=== PATIENT | female | born 1980 | race Caucasian/White ===

== ENCOUNTER 2017-04-03 12:08 | Emergency (ER) | payer OTHER ==
[2017-04-03 14:17] VITALS: BP 141/82
[2017-04-03] MEDS ORDERED: Albuterol/Ipratropium NEB.SOL* Albuterol 2.5 MG/Ipratropium 0.5 MG 3 ML INH ONE (14:24)
--- NOTE | 2017-04-03 14:40 | RAD ---
Indication: Cough, wheezing. 2 views of the chest including dual energy PA views demonstrate no mediastinal shift. Heart is of normal size and configuration. Lung niño demonstrate no pleural fluid, pneumonia or pneumothorax. IMPRESSION: No active cardiopulmonary disease is noted.
--- NOTE | 2017-04-03 15:40 | UC ---
Respiratory Complaint HPI - HPI Summary HPI Summary: TEN DAYS OF WORSENING COUGH AND SINUS CONGESTION, DEVELOPED FEVER TWO DAYS AGO. HAD BEEN TREATED WITH TAMIFLU WITH NO EFFECT TWO WEEKS AGO. 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 Negative: Calf Pain, Calf Swelling - Risk Factors Pulmonary Embolism Risk Factors: Negative Cardiac Risk Factors: Negative Pseudomonas Risk Factors: Negative Tuberculosis Risk Factors: Negative - Allergies/Home Medications Allergies/Adverse Reactions: Allergies Allergy/AdvReac Type Severity Reaction Status Date / Time Amoxicillin [From Augmentin] Allergy Hives Verified 04/03/17 14:08 Azithromycin [From Zithromax] Allergy Hives Verified 04/03/17 14:08 Clavulanic Acid Allergy Hives Verified 04/03/17 14:08 [From Augmentin] Codeine Allergy Swelling Verified 04/03/17 14:08 Of Face,Lips,& Throat Levofloxacin [From Levaquin] Allergy Hives Verified 04/03/17 14:08 Meperidine [From Demerol HCl] Allergy Hives Verified 04/03/17 14:08 Penicillins Allergy Hives Verified 04/03/17 14:08 Home Medications: Home Medications Oseltamivir CAP* [Tamiflu CAP*] 75 mg PO BID 04/03/17 [History Confirmed ] [id number] W/ APAP [Delsym Cough + Cold D... 3-19-302-325 mg/10Ml] 1 liq Q6HR PRN 04/03/17 [History Confirmed 04/03/17] [id number] [Mucinex Sinus-Max Day/Nig] 1 cap PO Q4HR PRN [History Confirmed 04/03/17] PMH/Surg Hx/FS Hx/Imm Hx Previously Healthy: Yes Respiratory History Of: Reports: Asthma - as child - Surgical History Surgical History: Yes Surgery Procedure, Year, and Place: 1989 Tonsils. 2008 Ovarian cyst rupture. 2016 RIGHT arm - Family History Known Family History: Negative: Respiratory Disease - Social History Occupation: Employed Full-time Lives: With Family Alcohol Use: None Substance Use Type: None Smoking Status (MU): Current Every Day Smoker Type: Cigarettes Amount Used/How Often: 1 ppd - Immunization History Most Recent Influenza Vaccination: NONE Most Recent Tetanus Shot: UTD Most Recent Pneumonia Vaccination: N/A Review of Systems Constitutional: Negative Skin: Negative Eyes: Negative ENT: Ear Ache, Nasal Discharge Respiratory: Cough Cardiovascular: Negative Gastrointestinal: Negative Genitourinary: Negative Motor: Negative Neurovascular: Negative Musculoskeletal: Negative Neurological: Negative Psychological: Negative All Other Systems Reviewed And Are Negative: Yes Physical Exam Triage Information Reviewed: Yes Appearance: No Pain Distress, Well-Nourished, Ill-Appearing Vital Signs: Initial Vital Signs Temp 97.9 F 04/03/17 14:11 Pulse 74 04/03/17 14:11 Resp 18 04/03/17 14:11 BP 141/82 04/03/17 14:11 Pulse Ox 98 04/03/17 14:11 Vital Signs Reviewed: Yes Eye Exam: Normal ENT: Positive: Hearing grossly normal, Nasal congestion, TM bulging, TM dull Dental Exam: Normal Neck exam: Normal Neck: Positive: Supple, Nontender, No Lymphadenopathy Respiratory Exam: Other - COUGH Respiratory: Positive: Normal breath sounds, No respiratory distress, No accessory muscle use, Wheezing Cardiovascular Exam: Normal Cardiovascular: Positive: RRR, No Murmur, Pulses Normal Abdominal Exam: Normal Abdomen Description: Positive: Nontender, No Organomegaly Musculoskeletal Exam: Normal Neurological Exam: Normal Psychological Exam: Normal Skin Exam: Normal UC Diagnostic Evaluation - Laboratory O2 Sat by Pulse Oximetry: 98 Respiratory Course/Dx - Differential Dx/Diagnosis Differential Diagnosis/HQI/PQRI: Sinusitis, Other Provider Diagnoses: SINUSITIS; BRONCHITIS WITH BRONCHOSPASM Discharge - Discharge Plan Condition: Stable Disposition: HOME Prescriptions: Albuterol HFA INHALER* [Ventolin HFA Inhaler*] 1 - 2 puff INH Q6H PRN #1 mdi PRN Reason: Wheezing DOXYcycline CAP(*) [DOXYcycline 100MG CAP(*)] 100 mg PO BID #20 cap Patient Education Materials: Sinusitis (ED), Acute Bronchitis (ED), Bronchospasm (ED) Referrals: Dali Paulson MD [Primary Care Provider] -
== END 2017-04-03 14:58 | disposition home or self-care (01) ==
LOC: UCCORT 12:08
DX: J32.9 Chronic sinusitis, unspecified (principal); J20.9 Acute bronchitis, unspecified; F17.210 Nicotine dependence, cigarettes, uncomplicated; Z88.0 Allergy status to penicillin; Z88.1 Allergy status to other antibiotic agents; Z88.5 Allergy status to narcotic agent
CPT/HCPCS: 71020; 99202; A9270-GY; G0463

== ENCOUNTER 2019-01-24 17:10 | Emergency (ER) | payer MEDICAID ==
--- NOTE | 2019-01-24 18:04 | ED ---
Abdominal Pain/Female - HPI Summary HPI Summary: The patient is a 38 y/o F presenting to [facility] from [facility] with a chief complaint of severe sudden onset epigastric and mild RUQ and LUQ pain since 0230 this morning. The sharp pain is currently rated 7/10 in severity. The pain is aggravated by sitting up and alleviated by lying down. She reports that she's had nausea (since resolved with Zofran at [facility]), vomiting, some diarrhea, and low back pain. She denies CP, edema in either lower extremity, and dysuria. 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 coli, so she is concerned that this could be related. She has had only one similar episode of this pain last year, but she had a cholecystectomy at the time. Smoker, marijuana use, rare EtOH. - History of Current Complaint Chief Complaint: EDAbdPain Stated Complaint: ABD PAIN/VOMITING PER EMS Time Seen by Provider: 01/24/19 17:19 Hx Obtained From: Patient Hx Last Menstrual Period: 01/19/19 Onset/Duration: Sudden Onset, Lasting Hours - since 0230 this morning, Still Present Timing: Hours Severity Initially: Moderate Severity Currently: Severe Pain Intensity: 7 Pain Scale Used: 0-10 Numeric Location: Epigastric, Other - primarily epigastric region but also RUQ and LUQ Radiates: No Character: Sharp Aggravating Factor(s): Other: - sitting Alleviating Factor(s): Position - lying down Associated Signs and Symptoms: Positive: Back Pain - bilateral low, Nausea - resolved with Zofran at [facility], Vomiting, Diarrhea - some, Other: - NEGATIVE: CP, edema. Negative: Urinary Symptoms - no dysuria Allergies/Adverse Reactions: Allergies Allergy/AdvReac Type Severity Reaction Status Date / Time amoxicillin Allergy Hives Verified 01/24/19 14:13 azithromycin Allergy Hives Verified 01/24/19 14:13 clavulanic acid Allergy Hives Verified 01/24/19 14:13 [From Augmentin] codeine Allergy Swelling Verified 01/24/19 14:13 Of Face,Lips,& Throat levofloxacin [From Levaquin] Allergy Hives Verified 01/24/19 14:13 meperidine [From Demerol] Allergy Hives Verified 01/24/19 14:13 Penicillins Allergy Hives Verified 01/24/19 14:13 PMH/Surg Hx/FS Hx/Imm Hx Endocrine/Hematology History: Denies: Hx Diabetes Respiratory History: Reports: Hx Asthma - Surgical History Surgery Procedure, Year, and Place: 1989 Tonsils, gallbladder 2018- [facility]. 2007 Ovarian cyst rupture. 2016 RIGHT arm Infectious Disease History: No Infectious Disease History: Denies: Traveled Outside the [place] in Last 30 Days - Family History Known Family History: Negative: Hypertension, Respiratory Disease - Social History Alcohol Use: Rare Substance Use Type: Reports: Marijuana Substance Use Comment - Amount & Last Used: last was 01/23/19 Hx Tobacco Use: Yes Smoking Status (MU): Light Every Day Tobacco Smoker Type: Cigarettes Amount Used/How Often: 1 ppd Review of Systems Negative: Chest Pain Positive: Abdominal Pain - primarily in the epigastric region but also in RUQ and LUQ, Vomiting, Diarrhea, Nausea Negative: dysuria Positive: Other - low bilateral back pain. Negative: Edema All Other Systems Reviewed And Are Negative: Yes Physical Exam - Summary Physical Exam Summary: Constitutional: Well-developed, Well-nourished, Alert. (+) Distressed, anxious, tearful Skin: Warm, Dry HENT: Normocephalic; Atraumatic Eyes: Conjunctiva normal Neck: Musculoskeletal ROM normal neck. (-) JVD, (-) Stridor, (-) Tracheal deviation Cardio: Rhythm regular, rate normal, Heart sounds normal; Intact distal pulses; The pedal pulses are 2+ and symmetric. Radial pulses are 2+ and symmetric. (-) Murmur Pulmonary/Chest wall: Effort normal. (-) Respiratory distress, (-) Wheezes, (-) Rales Abd: Soft, (+) mild tenderness primarily in the epigastric region but also in the RUQ and LUQ, (-) Distension, (-) Guarding, (-) Rebound, Bowel sounds present Musculoskeletal: (-) Edema Lymph: (-) Cervical adenopathy Neuro: Alert, Oriented x3 Psych: Mood and affect Normal Triage Information Reviewed: Yes Vital Signs On Initial Exam: Initial Vitals Temp Pulse Resp BP Pulse Ox 99.2 F 68 18 144/80 99 01/24/19 17:25 01/24/19 17:25 01/24/19 17:25 01/24/19 17:25 01/24/19 17:25 Vital Signs Reviewed: Yes Diagnostics - Vital Signs Vital Signs Temp Pulse Resp BP Pulse Ox 01/24/19 17:25 99.2 F 68 18 144/80 99 - Laboratory Result Diagrams: 01/24/19 18:49 01/24/19 18:49 Lab Statement: Any lab studies that have been ordered have been reviewed, and results considered in the medical decision making process. Re-Evaluation - Re-Evaluation First Eval Re-Evaluation Time: 19:30 Change: Worse Comment: She states she was feeling better before, but now she is in pain again. Abdominal Pain Fem Course/Dx - Course Course Of Treatment: The patient is a 38 y/o F presenting to [facility] from [facility] with a chief complaint of severe epigastric and mild RUQ and LUQ pain since 0230 this morning that is aggravated with sitting up and somewhat alleviated with Zofran, per visit at [facility]. Upon physical exam, the patient is tearful and anxious with tenderness primarily in the epigastric region but also in the RUQ and LUQ without guarding or rebound and with positive bowel sounds. In the ED course, the patient was administered Morphine, Dicyclomine, Zofran, Maalox, and Omnipaque IV contrast for CT. Blood work reveals slightly elevated MCH, and decreased lactic acid, calcium, and lipase. UA reveals ketones and urobilinogen. Abd/Pel CT is pending at end of shift. She is diagnosed with abd pain. Patient is a sign-out to Dr. Tanvir Rivera MD, at change of shift at 2200 pending Abd/Pel CT and disposition. - Diagnoses Provider Diagnoses: Abdominal pain Discharge - Sign-Out/Discharge Documenting (check all that apply): Sign-Out Patient Signing out patient TO: Tanvir Rivera - Patient is a sign-out to Dr. Tanvir Rivera MD, at change of shift at 2200 pending Abd/Pel CT and disposition. Patient Received Moderate/Deep Sedation with Procedure: No - Discharge Plan Referrals: Dali Paulson MD [Primary Care Provider] - - Attestation Statements Document Initiated by Scribe: Yes Documenting Scribe: Dawn Baum Provider For Whom Scribe is Documenting (Include Credential): Dr. Skye Montejo MD Scribe Attestation: IDawn, scribed for Dr. Skye Montejo MD on 01/24/19 at 2232. Scribe Documentation Reviewed: Yes Provider Attestation: The documentation as recorded by the scribe, Dawn Baum accurately reflects the service I personally performed and the decisions made by me, Dr. Skye Montejo MD Status of Scribe Document: Viewed
[2019-01-24] MEDS ORDERED: Ondansetron INJ* 2 MG/ML VIAL IV ONE (18:28)
[2019-01-24] MEDS ORDERED: Al Hydrox/Mg Hydrox/Simet LIQ* 30 ML UDC PO ONE (18:28)
[2019-01-24] MEDS ORDERED: Dicyclomine CAP* 10 MG PO ONE (18:28)
[2019-01-24] MEDS: Morphine 4 MG/ML VIAL (1 ml) 4 MG/ML VIAL IV PRN ×2 (18:44→19:48)
[2019-01-24 18:59] LABS: ABS Basophils 0.1 10^3/ul (0-0.2); ABS Eosinophils 0.1 10^3/ul (0-0.6); ABS Lymphocytes 2.4 10^3/ul (1.0-4.8); ABS Monocytes 0.5 10^3/ul (0-0.8); ABS Neutrophils 4.6 10^3/ul (1.5-7.7); ABS Nucleated RBC 0 10^3/ul; Eosinophil % 0.9 %; Hematocrit 39 % (33-41); Hemoglobin 13.5 g/dL (12.0-16.0); Lymphocyte % 31.1 %; Mean Corpuscular HGB Conc 35 g/dL (31-36); Mean Corpuscular Hemoglobin 34 pg (27-31); Mean Corpuscular Volume 98 fL (80-97); Mean Platelet Volume 8.5 fL (7.4-10.4); Nucleated Red Blood Cells % 0.1; Platelet Count 160 10^3/uL (150-450); Red Blood Count 3.96 10^6 /uL (3.70-4.87); Red Cell Distribution Width 13 % (10.5-15); White Blood Count 7.7 10^3/uL (3.5-10.8)
[2019-01-24 19:18] LABS: ALT 12 U/L (7-52); AST 17 U/L (13-39); Albumin 3.9 g/dL (3.2-5.2); Albumin/Globulin Ratio 1.4 (1-3); Alkaline Phosphatase 54 U/L (34-104); Anion Gap 7 mmol/L (2-11); BUN/Creatinine Ratio 12.9 (8-20); Blood Urea Nitrogen 8 mg/dL (6-24); C Reactive Protein < 1.00 mg/L (<8.01); CO2 Carbon Dioxide 20 mmol/L (22-32); Calcium 8.3 mg/dL (8.6-10.3); Chloride 110 mmol/L (101-111); EGFR African American 130.3 (>60); EGFR Non-African American 107.7 (>60); Globulin 2.7 g/dL (2-4); Glucose 82 mg/dL (70-100); Potassium 3.8 mmol/L (3.5-5.0); Sodium 137 mmol/L (135-145); Total Protein 6.6 g/dL (6.4-8.9)
[2019-01-24 19:21] LABS: HCG Pregnancy < 0.60 mIU/mL
[2019-01-24] MEDS ORDERED: Morphine 4 MG/ML VIAL (1 ml) 4 MG/ML VIAL IV PRN (19:33)
[2019-01-24 19:40] LABS: Urine Appearance Cloudy; Urine Bilirubin Negative (Negative); Urine Blood Negative (Negative); Urine Color Yellow; Urine Glucose Negative (Negative); Urine Ketones 1+ (Negative); Urine Nitrite Negative (Negative); Urine Protein Negative (Negative); Urine Urobilinogen Positive (Negative)
[2019-01-24] MEDS ORDERED: Iohexol 300* (CONTRAST) 10 ML SDV IV ONE (20:25)
[2019-01-24] MEDS ORDERED: Ondansetron ODT TAB* 4 MG PO ONE (22:36)
[2019-01-24 23:47] VITALS: BP 122/72
== END 2019-01-24 23:46 | disposition home or self-care (01) ==
LOC: ED 17:10
DX: R10.9 Unspecified abdominal pain (principal); M54.9 Dorsalgia, unspecified; Z88.0 Allergy status to penicillin; Z88.6 Allergy status to analgesic agent; F17.210 Nicotine dependence, cigarettes, uncomplicated
CPT/HCPCS: 36415; 74177; 80053; 81003; 83605; 83690; 84702; 85025; 86140; 96374; 96375; 99283; A9270-GY; J2270; J2405; Q9967